=== PATIENT | female | born 1950 | race Caucasian/White ===

== ENCOUNTER 2021-08-18 14:29 | Outpatient (CLI) | payer MEDICARE, BC | END 2021-08-18 14:30 | disposition home or self-care (01) | LOC: CSHMRI 14:29 | PROVIDERS: ATTEND Family Medicine | DX: G89.4 Chronic pain syndrome (principal); M51.9 Unspecified thoracic, thoracolumbar and lumbosacral intervertebral disc disorder; M54.16 Radiculopathy, lumbar region; M48.061 Spinal stenosis, lumbar region without neurogenic claudication; M43.16 Spondylolisthesis, lumbar region; M51.36 Other intervertebral disc degeneration, lumbar region | CPT/HCPCS: 72148 ==